=== PATIENT | male | born 1935 | race Caucasian/White ===

== ENCOUNTER 2017-02-28 16:37 | Emergency (ER) | payer MEDICARE, BC ==
--- NOTE | ~2017-02-28 | CT101 ---
[facility] A Service of [facility] & [facility] RADIOLOGY TEXT RESULTS PATIENT: NADINE IRENE LOCATION: [facility] : 35 UNIT #: [id number] AGE: [address]: García Burt DO SEX: M ORDER DR: [id number] [facility] [address] [place], [place] [address] [id number] E MR#: [id number] Acc #: [id number] NAME: NADINE IRENE : 1935 SEX: M STUDY DATE/TIME: 02/28/2017 20:05 UNIT: [facility] ROOM: STUDY DESCRIPTION: CT Maxillofacial Area Wo Cont Attending Physician: García Burt D.O. Ordering Physician: Vega Chavez M.D. Primary Care Physician: George Goodman M.D. MEDICAL IMAGING REPORT This report is preliminary unless electronic signature is present EXAM CT maxillofacial area 02/28/17. HISTORY Trip and fall. Head, neck pain. Laceration to mouth times today. Fell on face. Forehead, nasal, maxilla injury. Pain. TECHNIQUE This CT exam was performed with one or more of the following radiation dose reduction techniques: Automatic exposure control, adjustment of mA and/or kV according to patient size, and iterative reconstruction. FINDINGS CT facial bones performed. Bone and soft tissue windows reviewed. Sagittal and coronal reconstructions performed. Some images repeated due to motion artifact. See dedicated CT brain for full discussion of intracranial findings. Intraorbital soft tissues unremarkable. There is diffuse soft tissue swelling of the nose. No soft tissue defect, subcutaneous air or radiodense foreign body is seen. There is soft tissue swelling of the upper and lower lips again without definite soft tissue defect, subcutaneous air or radiodense foreign body seen. Mild mucosal thickening right frontal sinus, ethmoid air cells, right sphenoid sinus. The visualized bones of calvarium intact. Nasal bones intact. Nasal septum in midline. Ostiomeatal complexes patent. Bony orbital structures intact. There is some mucosal thickening in the right maxillary sinus as well. Zygomas, zygomatic arches, pterygoid plates intact. Dental hardware with resulting streak artifact. Mandible intact. Degenerative changes throughout the visualized cervical spine. No fracture suggested. There are carotid arterial calcifications. IMPRESSION 1. No facial bone fracture is seen. 2. Soft tissue swelling in the superficial nasal soft tissues diffusely. [facility]. [facility] A Service of [facility] RADIOLOGY TEXT RESULTS PATIENT: NADINE IRENE LOCATION: [facility] : 35 UNIT #: [id number] AGE: [address]: García Burt DO SEX: M ORDER DR: There appears to be soft tissue swelling in the upper and lower lips. No soft tissue defect is clearly seen. Correlate with clinical examination. No subcutaneous air or radiodense foreign body. 3. Mild mucosal thickening right frontal sinus, sphenoid sinus and right maxillary sinus. 4. Degenerative changes in the cervical spine. Visualized cervical spine shows no fracture. 5. Carotid arterial calcifications. 6. Review of the facial soft tissues shows what appears to be a cutaneous irregularity along the inferior surface of the upper lip most conspicuous on the sagittal reconstructed images. This may reflect the patient's stated trauma and be a small laceration. Again please correlate with exam. Dictated by... Mervin Cortez M.D. THIS IS AN ELECTRONICALLY VERIFIED REPORT Mervin Cortez M.D. at 03/01/2017 11:31 AM Ivan TD: 03/01/2017 08:07 JOB #: [id number] MEDICAL IMAGING REPORT Page 1 of 1 COPY
--- NOTE | ~2017-02-28 | CR58 ---
[facility] A Service of [facility] RADIOLOGY TEXT RESULTS PATIENT: NADINE IRENE LOCATION: [facility] : 35 UNIT #: [id number] AGE: [address]: García Burt DO SEX: M ORDER DR: [id number] [facility] [address] [place], [place] [address] [id number] E MR#: [id number] Acc #: [id number] NAME: NADINE IRENE : 1935 SEX: M STUDY DATE/TIME: 02/28/2017 21:41 UNIT: [facility] ROOM: STUDY DESCRIPTION: CR Cervical Spine 2 or 3 Views Attending Physician: García Burt D.O. Ordering Physician: García Burt D.O. Primary Care Physician: George Goodman M.D. MEDICAL IMAGING REPORT This report is preliminary unless electronic signature is present EXAM Cervical spine series 02/28/2017 HISTORY 81-year-old male in the ED with confusion/mental status changes and neck pain after a fall today. TECHNIQUE Three-view cervical spine series with 2 additional swimmer's lateral images. FINDINGS The examination is significantly limited by suboptimal radiographic exposure and patient positioning. The cervicothoracic junction is particularly poorly seen. There is no gross evidence of acute fracture or additional acute osseous abnormality. [id number] multilevel degenerative disc space changes are present throughout the mid and lower cervical spine, greatest at C5-6 and C6-7. Cervical vertebral alignment is normal. If there is high clinical suspicion for acute cervical spine injury, consider CT examination for more complete evaluation. IMPRESSION 1. No gross evidence of acute osseous injury on trauma cervical spine series. See details above. 2. Multilevel degenerative disc space changes throughout the mid and lower cervical spine. Normal cervical vertebral alignment. Dictated by... Jose Gamez M.D. THIS IS AN ELECTRONICALLY VERIFIED REPORT [facility] A Service [facility] & [facility] RADIOLOGY TEXT RESULTS PATIENT: NADINE IRENE LOCATION: [facility] : 35 UNIT #: [id number] AGE: [address]: García Burt DO SEX: M ORDER DR: Jose Gamez M.D. at 03/01/2017 9:56 PM KILEY/antony TD: 03/01/2017 08:14 JOB #: [id number] MEDICAL IMAGING REPORT Page 1 of 1 COPY
--- NOTE | ~2017-02-28 | CT71 ---
[facility] A Service of [facility] & [facility] RADIOLOGY TEXT RESULTS PATIENT: NADINE IRENE LOCATION: [facility] : 35 UNIT #: [id number] AGE: [address]: García Burt DO SEX: M ORDER DR: [id number] [facility] [address] [place], [place] [address] [id number] E MR#: [id number] Acc #: [id number] NAME: NADINE IRENE : 1935 SEX: M STUDY DATE/TIME: 02/28/2017 20:02 UNIT: [facility] ROOM: STUDY DESCRIPTION: CT Head Wo Contrast Attending Physician: García Burt D.O. Ordering Physician: Vega Chavez M.D. Primary Care Physician: George Goodman M.D. MEDICAL IMAGING REPORT This report is preliminary unless electronic signature is present EXAM CT head HISTORY Trip and fall, head, neck pain. Laceration to mouth times today. Fell on face. Forehead, nasal and maxilla injury, pain. TECHNIQUE This CT exam was performed with one or more of the following radiation dose reduction techniques: automatic exposure control, adjustment of mA and/or kV according to patient size, and iterative reconstruction. FINDINGS CT head performed skull base through vertex without intravenous contrast. Comparison 11/17/2016. Brainstem is unremarkable. Some images degraded by streak artifact despite repetition of images. Cerebellum and cerebral hemispheres show overall preservation of hunt matter-white matter differentiation. No hemorrhage. No evidence of acute cortical ischemia. Periventricular and deep white matter tract probable sequelae of chronic microvascular ischemia. Similar appearance on prior study. Midline structures are nondisplaced. No acute basal ganglia abnormality. Ventricles, cisterns and sulci show moderate to marked generalized enlargement consistent with generalized atrophy. Stable. No intra or extraaxial mass effect or abnormal intracranial fluid collection. There are cavernous carotid and distal vertebral arterial calcifications. The visualized intraorbital soft tissues are unremarkable. Visualized paranasal sinuses and mastoid air cells show minimal mucosal thickening right frontal and sphenoid sinuses. No fracture. Question mild soft tissue swelling left nasal region. Please see dedicated CTs of the facial bones for further assessment. Question small area of left posterior superior parietal scalp soft tissue swelling. There is some chronic change in the more anterior STS. [facility] A Service of [facility] & [facility] RADIOLOGY TEXT RESULTS PATIENT: NADINE IRENE LOCATION: [facility] : 35 UNIT #: [id number] AGE: [address]: García Burt DO SEX: M ORDER DR: left parietal scalp, perhaps reflecting prior trauma or intervention. IMPRESSION 1. No acute abnormality is seen in the brain. If the patient has ongoing neurologic symptoms, consider follow up imaging. 2. Chronic changes include the following: Periventricular and deep white matter tract probable sequelae of chronic microvascular ischemia, moderate to marked generalized atrophy, vascular calcifications. 3. No fracture. 4. Question left nasal region soft tissue swelling. See CT facial bones for further assessment. 5. Possible small area of scalp soft tissue swelling posterior-superior left parietal scalp. No soft tissue defect, subcutaneous air or radiodense foreign body seen. Dictated by... Mervin Cortez M.D. THIS IS AN ELECTRONICALLY VERIFIED REPORT Mervin Cortez M.D. at 03/01/2017 11:31 AM Jacques TD: 03/01/2017 07:58 JOB #: [id number] MEDICAL IMAGING REPORT Page 1 of 1 COPY
[2017-02-28 17:40] LABS: BASOPHIL# 0.1 X10e3 (0-0.3); BASOPHIL% 0.5 % (0-2.5); EOSINOPHIL# 0.2 X10e3 (0-0.7); EOSINOPHIL% 1.1 % (0.0-7.0); HEMATOCRIT 38.1 % (38.0-50.0); HEMOGLOBIN 12.3 gm/dL (13.0-16.0); LYMPHOCYTE# 1.6 X10e3 (1.0-3.5); LYMPHOCYTE% 10.6 % (17.0-45.0); MEAN CELL VOLUME 90.9 FL (83-96); MEAN CORPUSCULAR HEMOGLOBIN 29.3 PG (28-34); MEAN CORPUSCULAR HGB CONC 32.2 g/dL (30-36); MEAN PLATELET VOLUME 8.4 FL (6.5-11.5); MONOCYTE# 1.2 X10e3 (0-1.0); MONOCYTE% 7.8 % (3.0-12.0); NEUTROPHIL# 12.2 X10e3 (1.5-7.1); PLATELET COUNT 197 X10e3 (140-420); RED BLOOD COUNT 4.19 X10e (3.90-5.60); RED CELL DISTRIBUTION WIDTH 20.1 % (11.0-15.5); WHITE BLOOD COUNT 15.2 X10e3 (4.0-10.5)
[2017-02-28 17:42] LABS: DIFF IND YES
[2017-02-28 17:59] LABS: INR 1.7; PARTIAL THROMBOPLASTIN TIME 30.4 SECONDS (23.5-31.3); PROTHROMBIN TIME (PATIENT) 18.8 SECONDS (9.6-11.5)
[2017-02-28 18:02] LABS: CALCIUM SERUM 9.1 mg/dL (8.4-10.2); CREATININE SERUM 2.6 mg/dL (0.6-1.4); GLOM FILT RATE Estimated 22.1 mL/min (>60)
[2017-02-28 18:08] LABS: NUCLEATED RED BLOOD CELL 1 /100 (0)
[2017-02-28 18:10] LABS: PLATELET ESTIMATE NORMAL (NORMAL)
[2017-02-28 18:11] LABS: SPHEROCYTE SL; STOMATOCYTE PRESENT
== END 2017-02-28 23:07 | disposition home or self-care (01) ==
LOC: CED 16:37
PROVIDERS: Emergency Medicine
DX: S01.511A Laceration without foreign body of lip, initial encounter (principal); S00.83XA Contusion of other part of head, initial encounter; W17.89XA Other fall from one level to another, initial encounter; Y92.009 Unspecified place in unspecified non-institutional (private) residence as the place of occurrence of the external cause; I50.9 Heart failure, unspecified; F03.90 Unspecified dementia, unspecified severity, without behavioral disturbance, psychotic disturbance, mood disturbance, and anxiety
CPT/HCPCS: 36415; 70450; 70486; 72040; 80048; 85025; 85610; 85730; 99284

== ENCOUNTER 2017-03-03 09:58 | Emergency (ER) | payer MEDICARE, BC ==
[2017-03-03] MEDS ORDERED: SERTRALINE HCL50 MG PO (10:27)
[2017-03-03] MEDS ORDERED: WARFARIN SODIUM2 MG PO (10:27)
[2017-03-03] MEDS ORDERED: BUMEX1 MG PO (10:27)
[2017-03-03] MEDS ORDERED: CENTRUM SILVER1 EAC2 PO (10:28)
[2017-03-03] MEDS ORDERED: FINASTERIDE5 M1 PO (10:28)
[2017-03-03] MEDS ORDERED: PRESERVISION1 EA PO (10:28)
[2017-03-03] MEDS ORDERED: ASPIRIN81 MG PO (10:28)
[2017-03-03] MEDS ORDERED: MEMANTINE HCL10 MG PO (10:29)
[2017-03-03] MEDS ORDERED: MYRBETRIQ50 MG PO (10:29)
[2017-03-03] MEDS ORDERED: AMIODARONE PO (10:30)
[2017-03-03] MEDS ORDERED: ATORVASTATIN CA10 MG PO (10:30)
[2017-03-03] MEDS ORDERED: ARICEPT23 MG PO (10:30)
[2017-03-03] MEDS ORDERED: VITAMIN D250000 UNIT PO (10:30)
[2017-03-03] MEDS ORDERED: MELATIN3 MG (10:31)
[2017-03-03] MEDS ORDERED: FLOMAX0.4 M1 PO (10:31)
[2017-03-03] MEDS ORDERED: QUETIAPINE FUMA25 MG PO (10:31)
[2017-03-03] MEDS ORDERED: NITROQUICK0.4 MG SL (10:32)
== END 2017-03-03 10:52 | disposition home or self-care (01) ==
LOC: SED 09:58
DX: S61.412A Laceration without foreign body of left hand, initial encounter (principal); S61.411A Laceration without foreign body of right hand, initial encounter; W19.XXXA Unspecified fall, initial encounter; Z95.1 Presence of aortocoronary bypass graft; Y92.830 Public park as the place of occurrence of the external cause; Z79.82 Long term (current) use of aspirin; Z79.899 Other long term (current) drug therapy
CPT/HCPCS: 99283